=== PATIENT | female | born 1995 | race Caucasian/White ===

== ENCOUNTER 2018-07-24 15:28 | Inpatient (IN) | payer MEDICAID, OTHER, SELFPAY ==
[2018-07-25] MEDS ORDERED: Butorphanol Tartrate 1 MG/ML VIAL SLOW IVP PRN (01:14)
[2018-07-25] MEDS ORDERED: Acetaminophen/Codeine 30-300mg Tablet PO PRN ×2 (01:15)
[2018-07-25] MEDS ORDERED: Diphenoxylate HCl/Atropine Tablet PO PRN (01:15)
[2018-07-25] MEDS ORDERED: Carboprost 250 MCG/ML AMP IM PRN (01:15)
[2018-07-25] MEDS ORDERED: HYDROcodone/Acetaminophen 5/325 mg Tablet PO PRN ×3 (01:15→14:14)
[2018-07-25] MEDS ORDERED: Lidocaine 1% (PF) 30 ML VIAL SC PRN (01:15)
[2018-07-25] MEDS ORDERED: NS w/ Oxytocin 10 units 500 ML IV SCH ×2 (01:15)
[2018-07-25] MEDS ORDERED: NS / Oxytocin 40 units/1000ml 1,000 ML IV SCH ×2 (01:15→14:15)
[2018-07-25] MEDS ORDERED: Methylergonovine 0.2 MG/ML VIAL IM PRN (01:15)
[2018-07-25] MEDS ORDERED: Ibuprofen 800 MG TAB PO PRN (01:15)
[2018-07-25] MEDS: Misoprostol 100 MCG TAB VAG PRN ×2 (01:45→05:00)
[2018-07-25] MEDS: Lactated Ringer's 1,000 ML IV SCH ×2 (01:45→05:04)
[2018-07-25 01:50] VITALS: BMI 36.9
[2018-07-25 03:22] LABS: Hemoglobin 9.3 g/dL (12.0-16.0); Mean Corpuscular HGB CONC 31.7 g/dL (32.0-36.0); Mean Corpuscular Hemoglobin 23.6 pg (27.0-31.0); Mean Corpuscular Volume 74.5 fL (78.0-98.0); Mean Platelet Volume 7.7 fL (7.4-10.4); Platelet Count 236 thou/uL (130-400); RBC Distribution Width 15.7 % (11.5-14.5); Red Blood Cell (RBC) Count 3.93 mill/uL (4.20-5.40); White Blood Cell (WBC) Count 10.1 thou/uL (4.8-10.8)
[2018-07-25 03:45] LABS: HBSAg Index 0.23 S/CO (0-0.99); Hep B Surf Ag Non-Reactive S/CO (NonReactive)
[2018-07-25 04:38] LABS: Syphilis Antibody Nonreactive (Nonreactive); Syphilis Antibody Index 0.06 S/CO (<1.00 Non-Reactive)
[2018-07-25] MEDS ORDERED: Ondansetron HCl/PF 4 MG/2 ML Vial ONE ×3 (07:54→17:27)
[2018-07-25] MEDS ORDERED: Ondansetron HCl/PF 4 MG/2 ML Vial IVP PRN ×3 (08:35→14:58)
[2018-07-25] MEDS ORDERED: Dexamethasone 4 mg/ml Vial ONE (13:42)
[2018-07-25] MEDS ORDERED: Ketorolac Tromethamine 30 MG/ML VIAL ONE ×2 (13:42→17:27)
[2018-07-25] MEDS ORDERED: Fentanyl 250 MCG/5 ML VIAL ONE (13:42)
[2018-07-25] MEDS ORDERED: Oxytocin 10 UNITS/ML VIAL ONE (13:42)
[2018-07-25] MEDS ORDERED: CEFAZOLIN/Water 2 GM/20 ML SYRINGE ONE (13:47)
[2018-07-25 14:04] LABS: Actual Bicarbonate (HCO3a) 16.9 mEq/L (22-28); Analyzer IN Cardio OR; Base Excess (BEa) -10.9 mEq/L (-2.0 to +3.0)
[2018-07-25] MEDS ORDERED: Fentanyl 100 MCG/2 ML VIAL ONE (14:11)
[2018-07-25] MEDS ORDERED: Promethazine HCl 25 MG/ML VIAL IM PRN ×2 (14:14→14:58)
[2018-07-25] MEDS ORDERED: Misoprostol 200 MCG TAB PR PRN (14:14)
[2018-07-25] MEDS ORDERED: Lanolin Ointment 7 GM TUBE TOP PRN (14:14)
[2018-07-25] MEDS ORDERED: Bisacodyl 10 MG SUPP PR PRN (14:14)
[2018-07-25] MEDS ORDERED: Meperidine HCl/PF 25 MG/ML VIAL IM PRN (14:14)
[2018-07-25] MEDS ORDERED: diphenhydrAMINE 25 MG CAP PO PRN ×2 (14:14→14:58)
[2018-07-25] MEDS ORDERED: Simethicone Chewable 80 MG TAB PO PRN (14:14)
[2018-07-25] MEDS ORDERED: Adacel (T-DAP) 0.5 ML VIAL IM ONE (14:14)
[2018-07-25] MEDS ORDERED: Lactated Ringer's 1,000 ML IV SCH (14:15)
--- NOTE | 2018-07-25 14:18 | PDOC.OPDEL ---
OB Operative/Delivery Note Delivery Dr/Surgeon: Janet Assist: Callie Pre-Delivery Diagnosis: non-reassuring tracing (cord prolpase) Procedure/Post Delivery Dx: primary low transverse CS Weeks gestation: 39 Anesthesia: other (GETA) - Findings A Sex: female Weight: 8 lb 7 oz - 1 min: 8 - 5 min: 9 - Additional Findings/Plan Placenta delivered: manual removal findings: low transverse hysterotomy without extension (ebl 750 ml) Estimated blood loss: 750ml Compilations/Other Findings: none Post delivery plan: routine recovery
[2018-07-25] MEDS ORDERED: L&D-Morphine 4 MG/ML VIAL SLOW IVP PRN (14:57)
[2018-07-25] MEDS ORDERED: HYDROmorphone 2 MG/ML VIAL SLOW IVP PRN (14:57)
[2018-07-25] MEDS ORDERED: diphenhydrAMINE 50 MG/ML VIAL IVP PRN (14:58)
[2018-07-25] MEDS ORDERED: Zolpidem Tartrate 5 MG TAB PO PRN (14:58)
[2018-07-25] MEDS ORDERED: Naloxone HCl 0.4 mg/ml Vial IV PRN (14:58)
[2018-07-25] MEDS ORDERED: diphenhydrAMINE 50 MG/ML VIAL IM PRN (14:58)
[2018-07-25] MEDS ORDERED: fentaNYL Citrate/PF 2,000 MCG in Sodium Chloride 0.9% 60 ML IV PRN (14:58)
[2018-07-25] MEDS ORDERED: Communication Order-Pharmacy FS SCH (15:00)
[2018-07-25] MEDS ORDERED: PROPOFOL 200 MG/20 ML VIAL ONE (17:27)
[2018-07-25] MEDS ORDERED: Dexamethasone 20 MG/5 ML VIAL ONE (17:27)
[2018-07-25] MEDS ORDERED: Succinylcholine Chloride 20 MG/ML 10 ml SYRINGE FS ONE (17:27)
[2018-07-25] MEDS: Ketorolac Tromethamine 30 MG/ML VIAL IVP SCH ×2 (17:42→23:51)
[2018-07-25] MEDS: Docusate Calcium (SURFAK) 240 MG CAP PO SCH (19:29)
[2018-07-25] MEDS: Ferrous Sulfate 325 MG TAB PO SCH (19:29)
[2018-07-25] MEDS: Ibuprofen 800 MG TAB PO SCH (19:30)
[2018-07-26 05:59] LABS: Hemoglobin 6.8 g/dL (12.0-16.0); Mean Corpuscular HGB CONC 32.4 g/dL (32.0-36.0); Mean Corpuscular Hemoglobin 24.2 pg (27.0-31.0); Mean Corpuscular Volume 74.8 fL (78.0-98.0); Platelet Count 171 thou/uL (130-400); RBC Distribution Width 15.6 % (11.5-14.5); White Blood Cell (WBC) Count 10.7 thou/uL (4.8-10.8)
[2018-07-26] MEDS: Ketorolac Tromethamine 30 MG/ML VIAL IVP SCH ×3 (05:59→14:33)
--- NOTE | 2018-07-26 08:18 | PDOC.PP ---
Post Progress Note Post Day #: 1 PO intake tolerated: yes Flatus: yes Ambulation: yes Vital Signs (12 hours) Temp Pulse Resp BP Pulse Ox 07/26/18 07:43 99.0 F 81 20 103/55 L 97 07/26/18 04:00 98.3 F 66 18 106/53 L 98 Weight Weight 202 lb - Physical Examination General: NAD Abdominal: + bowel sounds, lochia, no distention, appropriately TTP Result Diagrams: 07/26/18 05:42 Additional Labs: Post Labs Blood Type O POSITIVE 07/25/18 01:30 Hep Bs Antigen Non-Reactive S/CO (NonReactive) 07/25/18 01:30 - Assessment/Plan post op day 1 from emergent c/s for cord prolapse. Asymptomatic blood loss anemia. Routine post op care. oral iron. ambulate
[2018-07-26] MEDS ORDERED: HYDROcodone/Acetaminophen 5/325 mg Tablet PO PRN (08:24)
[2018-07-26] MEDS: Prenatal Vitamin 1 TAB PO SCH (08:29)
[2018-07-26] MEDS: Ferrous Sulfate 325 MG TAB PO SCH ×2 (08:29→21:17)
[2018-07-26] MEDS: Docusate Calcium (SURFAK) 240 MG CAP PO SCH ×2 (08:29→21:18)
[2018-07-26] MEDS: Ibuprofen 800 MG TAB PO SCH ×3 (08:53→21:16)
--- NOTE | 2018-07-26 10:37 | OP ---
DATE OF PROCEDURE: 07/25/2018 PREOPERATIVE DIAGNOSES: 1. A 22-year-old white female, G4, P1, A2 at 39 weeks and 6 days gestation, status post Cytotec, Pit ocin induction. 2. Amniotomy at 2 cm, 50% effaced, -2 station. Then, with noted heart rate deceleration in cl ose proximity. 3. Cord prolapse noted remote from delivery. POSTOPERATIVE DIAGNOSES: 1. A 22-year-old white female, G4, P1, A2 at 39 weeks and 6 days gestation, status post Cytotec, Pit ocin induction. 2. Amniotomy at 2 cm, 50% effaced, -2 station. Then, with noted heart rate deceleration in cl ose proximity. 3. Cord prolapse noted remote from delivery. PROCEDURE PERFORMED: Emergent primary low transverse section without extension. SURGEON: Dorita Gonzales M.D. AUTOMATION MACHINE BUILDER: Jordy Jay M.D. ANESTHESIA: General. ESTIMATED BLOOD LOSS: Approximately 750 mL. COMPLICATIONS: None. COUNTS: Correct x2. ANTIBIOTICS: Two grams Ancef. FINDINGS: 1. Vigorous female infant, Apgars 8 and 9, weight 8 pounds 7 ounces. Cord ABG: pH 7.20. 2. Clear urine present in Eastman catheter post-procedure. 3. Normal-appearing fallopian tubes, ovaries, and uterus. DISPOSITION: To the recovery room stable. DESCRIPTION OF OPERATIVE PROCEDURE: The patient had been undergoing Cytotec, Pitocin induction for o beverley 12 hours with minimal change noted and was noted to be 1-2 cm, 50% effaced, -2 station. She unde rwent amniotomy procedure with cervical exam and stripping of membranes and immediately was noted to be approximately 3-4 cm, 50% effaced and -1 station. heart rate tracing remained reassuring du ring this process. Approximately 5-10 minutes post-amniotomy, I was called back to the unit for feta l heart rate decelerations in the 40 beats per minute. My nurse silver miner blasting was in the unit and she had examined the patient and was noted to be 3-4 cm with a cord prolapse noted. The patient was then bette rgently taken back to the OR suite while the keeping the head off the cord. Palpable fet al heart beat was in the 120s per my silver miner blasting. Patient was emergently prepped and draped, underwent g eneral anesthesia. An emergent section was then carried out. A Pfannenstiel incision was m dede in the lower abdomen and it is carried down the fascia. Fascia was nicked in the midline and ext ended quickly bilaterally. Rectus fascia was then elevated and rectus muscle bellies were dissected sharply and bluntly for fascia. The rectus muscles were then divided in the midline. The peritoneal cavity was quickly entered. A 2 cm hysterotomy incision was then made above the bladder with the wa alpel, 2 cm hysterotomy incision was then extended via finger fractionation. The baby was delivered in vertex presentation. Mouth and nares of were bulb suctioned. Cord was doubly clamped and cut and handed to the optoelectronic technician, Dr. Yanez, who was in attendance. Usual cord blood and cor d gas was obtained. The placenta was manually extracted. The uterus was then externalized and curet charanjit any remaining placental fragments with dry laparotomy sponge. Hysterotomy incision was then clos ed with #1 Monocryl in running locking fashion. Hemostasis was assured. Uterus was then placed back into the abdomen. The pelvis was irrigated and suctioned. Hemostasis was noted. Rectus muscle bel lies were noted be hemostatic prior to fascial closure. The fascia was closed with 0 PDS suture x2 i n running continous fashion. Subcutaneous tissue was noted to be hemostatic prior to skin approximat ion with dee. Surgery was terminated and no anesthetic or surgical complications occurred. Fole y catheter was then placed due to emergent nature and it was difficult to place the Eastman during the prep process because of elevation of head and clear urine was draining from the Eastman noted upo n transfer into the PACU.
[2018-07-26] MEDS: HYDROcodone/Acetaminophen 5/325 mg Tablet PO PRN ×2 (17:02→21:17)
[2018-07-26 17:43] VITALS: TEMP 98
[2018-07-26 22:32] VITALS: BP 119/57
[2018-07-27] MEDS: Ibuprofen 800 MG TAB PO SCH (06:10)
[2018-07-27] MEDS: HYDROcodone/Acetaminophen 5/325 mg Tablet PO PRN (06:13)
[2018-07-27] MEDS ORDERED: Ferrous Sulfate 325 MG TAB ONE (08:54)
[2018-07-27] MEDS ORDERED: Docusate Calcium (SURFAK) 240 MG CAP ONE (08:55)
[2018-07-27] MEDS: Docusate Calcium (SURFAK) 240 MG CAP PO SCH (08:59)
[2018-07-27] MEDS: Prenatal Vitamin 1 TAB PO SCH (08:59)
[2018-07-27] MEDS: Ferrous Sulfate 325 MG TAB PO SCH (08:59)
[2018-07-27] MEDS: Ketorolac Tromethamine 30 MG/ML VIAL IVP SCH (12:55)
== END 2018-07-27 13:30 | disposition home or self-care (01) | DRG 788 ==
LOC: L&D 23:35 → 3SW 07-25 16:45
PROVIDERS: ADMIT Obstetrics & Gynecology; ATTEND Obstetrics & Gynecology
PROC: 10D00Z1 Extraction of Products of Conception, Low, Open Approach (ICD-10-PCS; principal; 2018-07-25)
PROC: 10907ZC Drainage of Amniotic Fluid, Therapeutic from Products of Conception, Via Natural or Artificial Opening (ICD-10-PCS; 2018-07-25)
PROC: 3E033VJ Introduction of Other Hormone into Peripheral Vein, Percutaneous Approach (ICD-10-PCS; 2018-07-25)
DX: O69.0XX0 Labor and delivery complicated by prolapse of cord, not applicable or unspecified (principal); O76 Abnormality in fetal heart rate and rhythm complicating labor and delivery; Z3A.39 39 weeks gestation of pregnancy; Z37.0 Single live birth
CPT/HCPCS: 36415; 51702; 82805; 85027; 86780; 86850; 86900; 86901; 87340; J1100; J1885; J2405; J2590; J2704; J3010; J7050

== ENCOUNTER 2018-07-30 00:07 | Emergency (ER) | payer MEDICAID | END 2018-07-30 01:52 | disposition home or self-care (01) | LOC: ERS 00:07 | DX: O91.22 Nonpurulent mastitis associated with the puerperium (principal) | CPT/HCPCS: 99283 ==